=== PATIENT | male | born 1970 | race Caucasian/White ===

== ENCOUNTER → 2020-12-28 | Outpatient (CLI) | payer MEDICAID ==
[~2020-12-28] MED LIST: ADVIL200 MG PO; ASPIRIN E.C. 8181 MG PO; DIFLUCAN200 MG PO; LIPITOR 80MG80 MG PO; LOPRESSOR 225 MG/TAB PO; MITIGARE0.6 MG; NORCO 325 MG-51 TAB PO; PEPCID 20MG TAB20 MG PO; PLAVIX 75MG TAB75 MG PO; PREDNISONE20 MG PO; PRINIVIL10 MG PO; PRINIVIL40 MG PO; ZESTRIL 20MG TA20 MG PO; ZOFRAN ODT4 MG PO; ZOLOFT 100MG100 MG PO
[2021-01-09 13:56] LABS: BLASTOMYCES AB CF XXX
[2021-01-09 13:57] LABS: COCCIDIOIDES AB CF XXX; HISTOPLASMA MYCELIAL AB CF XXX
[2021-01-24 07:59] LABS: .HISTOPLASMA ANTIGEN SERUM None Detected (())
== END ==
LOC: COL.LAB 10:17
PROVIDERS: Internal Medicine Infectious Disease
DX: B45.0 Pulmonary cryptococcosis (principal)

== ENCOUNTER 2021-01-08 04:56 | Inpatient (IN) | payer MEDICAID ==
[2021-01-08] VITALS (16 sets, daily range): BP systolic 125–170; BP diastolic 53–89; PULSE 73–119; TEMP 98.1–98.7
[~2021-01-08] VITALS: Ht 180.3 cm; Wt 120.0 kg
[2021-01-08 05:13] LABS: BASO % 0.3 % (0.0-2.0); EOS # 0.3 (0.0-0.7); EOS % 2.7 % (0-4.0); GRAN # 5.9 (1.4-6.5); GRAN % 63.7 % (42.2-75.2); HEMATOCRIT 43.6 % (42.0-52.0); LYMPH # 2.3 (1.2-3.4); LYMPH % 25.1 % (20.0-51.0); MEAN CELL VOLUME 95 fl (80.0-100.0); MEAN CORPUSCULAR HEMOGLOBIN 30 pg (27.0-31.0); MEAN CORPUSCULAR HGB CONC 32 g/dl (33.0-37.0); MEAN PLATELET VOLUME 11.2 fl (7.4-10.4); MONO # 0.7 (0.1-0.6); MONO % 7.8 % (1.7-9.3); PLATELET COUNT 237 K/mm3 (130-400); RED BLOOD COUNT 4.61 M/mm3 (4.20-5.60); REDCELL DISTRIBUTION WIDTH-CV 14.2 % (11.5-14.5)
[2021-01-08 05:20] LABS: ALBUMIN 3.8 gm/dL (3.5-5.0); BILIRUBIN,TOTAL 0.1 mg/dL (0.0-1.0); CALCIUM 8.5 mg/dL (8.4-10.2); CREATININE, serum 0.91 (0.66-1.25); POTASSIUM 3.9 mmol/L (3.4-5.0); TOTAL PROTEIN 7.4 gm/dL (6.4-8.2)
[2021-01-08 05:32] LABS: TROPONIN-I 0.083 ng/mL (0.000-0.035)
[2021-01-08] MEDS ORDERED: PRINIVIL40 MG PO (06:18)
[2021-01-08] MEDS ORDERED: DIFLUCAN200 MG PO (06:18)
[2021-01-08] MEDS ORDERED: ZESTRIL 20MG TA20 MG PO (06:18)
[2021-01-08] MEDS ORDERED: ADVIL200 MG PO (08:36)
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
--- NOTE | 2021-01-08 10:50 | NUR ---
PADMA met with the patient and his , Federica (ph#[phone]), to discuss discharge plan. The patient lives in [place] with his . He reports independence with ADLs and does not have any DME. The patient states that he does not have a PCP at this time. He receives his medications from [facility] in . He reports occasional difficulties affording his meds. He states that he utilizes [facility]. The patient confirms that he has Medicaid. He states that he got a letter in the mail though, stating that he will be losing coverage at the end of this month. PADMA consulted Financial Counselor, Eloina, to look into his coverage and to apply for Medicaid again, if he is losing coverage. PADMA discussed getting set up with a PCP and informed him of [facility] in . The patient states that his goes there and that he would be interested in getting set up at [facility] for primary care. The patient does not have a DPOA-HC, but he was interested in obtaining a form. PADMA provided. The patient plans to return home with his upon discharge. PADMA to secure the [facility] an [facility] in . *Discharge plan: home with *
[2021-01-08 11:55] LABS: MAGNESIUM 1.8 mg/dL (1.6-2.3)
--- NOTE | 2021-01-08 13:10 | NUR ---
CARDIO CONSULT NOTIFIED. PER ADMITTING, PT NOT TO EAT UNTIL SEEN BY CARDIO. PT MADE AWARE THAT HE SHOULD NOT EAT OR DRINK.
--- NOTE | 2021-01-08 13:30 | NUR ---
Initial visit; Patient thanked Screening Nurse for offering spiritual care though declined.
--- NOTE | 2021-01-08 14:12 | NUR ---
PROVIDER AT THE BEDSIDE, PT IS GOING FOR A PROCEDURE THIS AFTERNOON. CONSENT OBTAINED. HAM ROLLING MACHINE OPERATOR MADE AWARE THE PT IS ON A HEPARIN DRIP. NURSE AT THE BEDSIDE TO TRANSFER PT TO HAM ROLLING MACHINE OPERATOR. NO S/S OF DISTRESS NOTICED AT THIS TIME.
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
--- NOTE | 2021-01-08 23:00 | NUR ---
Patient complains of pain in his lower extremities, similar to what he chronically experiences at home. Patient states the morphine from earlier helped with this; he requests an additional dose and order is obtained for one time dose of 2mg.
[2021-01-09 00:10] VITALS: BP 145/78; PULSE 83; TEMP 98
--- NOTE | 2021-01-09 01:00 | NUR ---
All air has been removed from TR band on right radial site and TR band is taken off. No signs of bleeding. Bandaid placed over site. Will continue to monitor.
[2021-01-09 03:55] VITALS: BP 117/51; PULSE 91; TEMP 98
[2021-01-09 07:17] VITALS: BP 123/65; PULSE 91; TEMP 97.9
[2021-01-09] MEDS ORDERED: PLAVIX 75MG TAB75 MG PO (09:12)
[2021-01-09] MEDS ORDERED: LOPRESSOR 225 MG/TAB PO (09:13)
[2021-01-09] MEDS ORDERED: ASPIRIN E.C. 8181 MG PO (09:13)
[2021-01-09] MEDS ORDERED: LIPITOR 80MG80 MG PO (09:13)
[2021-01-09 09:30] LABS: CHOLESTEROL 254 mg/dL (120-200)
[2021-01-09 09:54] LABS: TRIGLYCERIDE 1374 mg/dL
--- NOTE | 2021-01-09 10:39 | NUR ---
DISCHARGE INSTRUCTIONS REVIEWED WITH PATIENT QUESTIONS ANSWERED. PT LEFT IMMEDIATELY WITH OUT FOLLOWING DIRECTIONS OF GLO PRATT TO PLEASE WAIT THE HOSPITALIST WOULD LIKE TO FOLLOW UP ON HYPERLIPIDEMA WITH . PT LEFT INDEPENDENTLY AMBULATORY.
--- NOTE | 2021-01-09 11:14 | NUR ---
contact worker called [facility] in [place] to establish patient with them. Patient has a follow up appointment on FridayJanuary [address] Madison[address]contact worker faxed patients information to [facility] in [place]. contact worker tried reaching out to the patient to let him know that i have established him at [facility], what date and time his appointment is and to inform him that [facility] will be reaching out to him for new patient paperwork. contact worker was unsuccessful in getting ahold of the patient.
--- NOTE | 2021-01-09 13:01 | NUR ---
car worker got a hold of Federica. Informed Federica of patient's appointment date/time with [facility] for his hospital follow up. Informed Federica that [facility] will be sending them new patient paperwork for them to fill out.
[2021-02-20] MEDS ORDERED: PRINIVIL10 MG PO (09:05)
[2021-02-20] MEDS ORDERED: ZOLOFT 100MG100 MG PO (09:07)
== END 2021-01-09 10:00 | disposition home or self-care (01) | DRG 246 ==
LOC: COL.ER 04:56 → MEDICAL 06:24
PROVIDERS: Personal Emergency Response Attendant; Physician Assistant; ADMIT Student in an Organized Health Care Education/Training Program
PROC: 4A023N7 Measurement of Cardiac Sampling and Pressure, Left Heart, Percutaneous Approach (ICD-10-PCS; principal; 2021-01-08)
PROC: 027135Z Dilation of Coronary Artery, Two Arteries with Two Drug-eluting Intraluminal Devices, Percutaneous Approach (ICD-10-PCS; 2021-01-08)
PROC: B2111ZZ Fluoroscopy of Multiple Coronary Arteries using Low Osmolar Contrast (ICD-10-PCS; 2021-01-08)
DX: I11.0 Hypertensive heart disease with heart failure (principal); I21.4 Non-ST elevation (NSTEMI) myocardial infarction; I50.23 Acute on chronic systolic (congestive) heart failure; E66.01 Morbid (severe) obesity due to excess calories; Z87.891 Personal history of nicotine dependence; M48.00 Spinal stenosis, site unspecified; E66.9 Obesity, unspecified; I25.10 Atherosclerotic heart disease of native coronary artery without angina pectoris; I25.2 Old myocardial infarction
CPT/HCPCS: 99223-AI; 99239; C1725; C1769; C1874; C1887; C9600; J1644; J2250; J2270; J2405; J2930; J3010; Q9967

== ENCOUNTER 2021-01-12 17:15 | Emergency (ER) | payer MEDICAID ==
[~2021-01-12] VITALS: Ht 180.3 cm; Wt 118.2 kg
[~2021-01-12 17:15] MED LIST changes: -MITIGARE0.6 MG; -NORCO 325 MG-51 TAB PO; -PEPCID 20MG TAB20 MG PO; -PREDNISONE20 MG PO; -PRINIVIL10 MG PO; -ZOFRAN ODT4 MG PO; -ZOLOFT 100MG100 MG PO
[2021-01-12 17:23] VITALS: TEMP 98.3
[2021-01-12 17:58] LABS: BASO % 0.1 % (0.0-2.0); GRAN # 15.2 (1.4-6.5); GRAN % 82.1 % (42.2-75.2); HEMATOCRIT 45.5 % (42.0-52.0); LYMPH # 1.7 (1.2-3.4); LYMPH % 9.3 % (20.0-51.0); MEAN CELL VOLUME 90 fl (80.0-100.0); MEAN CORPUSCULAR HEMOGLOBIN 30 pg (27.0-31.0); MEAN CORPUSCULAR HGB CONC 33 g/dl (33.0-37.0); MEAN PLATELET VOLUME 11.4 fl (7.4-10.4); MONO # 1.4 (0.1-0.6); MONO % 7.5 % (1.7-9.3); PLATELET COUNT 325 K/mm3 (130-400); RED BLOOD COUNT 5.07 M/mm3 (4.20-5.60); REDCELL DISTRIBUTION WIDTH-CV 14.1 % (11.5-14.5)
[2021-01-12 18:07] LABS: ALBUMIN 3.9 gm/dL (3.5-5.0); BILIRUBIN,TOTAL 0.2 mg/dL (0.0-1.0); CALCIUM 9.2 mg/dL (8.4-10.2); CREATININE, serum 0.91 (0.66-1.25); POTASSIUM 4.1 mmol/L (3.4-5.0); TOTAL PROTEIN 7.5 gm/dL (6.4-8.2)
[2021-01-12 18:10] LABS: PROTHROMBIN TIME 11.1 SECONDS (9.7-12.8)
[2021-01-12 18:13] LABS: PARTIAL THROMBOPLASTIN TIME 24.9 SECONDS (26.0-37.0)
[2021-01-12 18:18] LABS: TROPONIN-I 0.016 ng/mL (0.000-0.035)
[2021-01-12] MEDS ORDERED: NORCO 325 MG-51 TAB PO (19:54)
[2021-01-12 20:10] VITALS: BP 142/95; PULSE 89
[2021-02-20] MEDS ORDERED: PRINIVIL10 MG PO (09:05)
[2021-02-20] MEDS ORDERED: ZOLOFT 100MG100 MG PO (09:07)
== END 2021-01-12 20:10 | disposition home or self-care (01) ==
LOC: COL.ER 17:15
PROVIDERS: Family Medicine
DX: M54.12 Radiculopathy, cervical region (principal); I25.10 Atherosclerotic heart disease of native coronary artery without angina pectoris; F17.200 Nicotine dependence, unspecified, uncomplicated; Z95.9 Presence of cardiac and vascular implant and graft, unspecified; Z79.02 Long term (current) use of antithrombotics/antiplatelets; Z79.82 Long term (current) use of aspirin
CPT/HCPCS: J2270; J2405; J7120

== ENCOUNTER → 2021-02-15 | Outpatient (CLI) | payer MEDICAID ==
[~2021-02-15] MED LIST changes: +MITIGARE0.6 MG; +NORCO 325 MG-51 TAB PO; +PEPCID 20MG TAB20 MG PO; +PREDNISONE20 MG PO; +PRINIVIL10 MG PO; +TOPROL XL 25MG25 MG PO; +ZOFRAN ODT4 MG PO; +ZOLOFT 100MG100 MG PO
[2021-02-15 12:28] LABS: BASO % 0.2 % (0.0-2.0); EOS % 0.2 % (0-4.0); GRAN # 8.6 (1.4-6.5); GRAN % 80.6 % (42.2-75.2); HEMATOCRIT 49.5 % (42.0-52.0); HEMOGLOBIN 16.2 g/dl (13.5-18.0); LYMPH # 1.6 (1.2-3.4); LYMPH % 14.6 % (20.0-51.0); MEAN CELL VOLUME 90 fl (80.0-100.0); MEAN CORPUSCULAR HEMOGLOBIN 30 pg (27.0-31.0); MEAN CORPUSCULAR HGB CONC 33 g/dl (33.0-37.0); MEAN PLATELET VOLUME 11.2 fl (7.4-10.4); MONO # 0.3 (0.1-0.6); MONO % 3.2 % (1.7-9.3); PLATELET COUNT 295 K/mm3 (130-400); RED BLOOD COUNT 5.48 M/mm3 (4.20-5.60); REDCELL DISTRIBUTION WIDTH-CV 13.7 % (11.5-14.5)
[2021-02-15 12:38] LABS: ALBUMIN 4.8 gm/dL (3.5-5.0); BILIRUBIN,TOTAL 0.5 mg/dL (0.0-1.0); CALCIUM 9.9 mg/dL (8.4-10.2); CREATININE, serum 1.02 (0.66-1.25); POTASSIUM 4.7 mmol/L (3.4-5.0); TOTAL PROTEIN 8.3 gm/dL (6.4-8.2)
[2021-02-15 13:03] LABS: ERYTHROCYTE SEDIMENTATION RATE 6 mm/hr (0-15)
[2021-02-23 11:42] LABS: .HISTOPLASMA ANTIGEN SERUM None Detected (())
== END ==
LOC: COL.LAB 11:23
PROVIDERS: Internal Medicine Infectious Disease
DX: R93.89 Abnormal findings on diagnostic imaging of other specified body structures (principal)

== ENCOUNTER 2021-02-24 05:01 | Observation (INO) | payer MEDICAID ==
[~2021-02-24] VITALS: Ht 180.3 cm; Wt 113.6 kg
[~2021-02-24 05:01] MED LIST changes: -MITIGARE0.6 MG; -PEPCID 20MG TAB20 MG PO; -PREDNISONE20 MG PO; -TOPROL XL 25MG25 MG PO; -ZOFRAN ODT4 MG PO
[2021-02-24 05:22] LABS: BASO % 0.3 % (0.0-2.0); EOS # 0.2 (0.0-0.7); EOS % 1.8 % (0-4.0); GRAN # 7.4 (1.4-6.5); GRAN % 67.4 % (42.2-75.2); HEMATOCRIT 45.9 % (42.0-52.0); LYMPH # 2.4 (1.2-3.4); MEAN CELL VOLUME 92 fl (80.0-100.0); MEAN CORPUSCULAR HEMOGLOBIN 30 pg (27.0-31.0); MEAN CORPUSCULAR HGB CONC 33 g/dl (33.0-37.0); MEAN PLATELET VOLUME 11.5 fl (7.4-10.4); MONO # 0.9 (0.1-0.6); MONO % 7.7 % (1.7-9.3); PLATELET COUNT 239 K/mm3 (130-400); REDCELL DISTRIBUTION WIDTH-CV 14.2 % (11.5-14.5)
[2021-02-24 05:41] LABS: ALBUMIN 3.6 gm/dL (3.5-5.0); BILIRUBIN,TOTAL 0.3 mg/dL (0.2-1.2); CALCIUM 9.3 mg/dL (8.4-10.2); CREATININE, serum 1.73 mg/dL (0.72-1.25); POTASSIUM 4.4 mmol/L (3.5-4.5); TOTAL PROTEIN 7.4 gm/dL (6.2-8.1)
[2021-02-24 05:52] LABS: PROTHROMBIN TIME 10.7 SECONDS (9.7-12.8)
[2021-02-24 05:55] LABS: PARTIAL THROMBOPLASTIN TIME 28.9 SECONDS (26.0-37.0)
--- NOTE | 2021-02-24 10:00 | NUR ---
Admission assessment completed, alert/oriented, vital signs stable, denies any chest discomfort, denies any resp.difficulty, lungs CTA, heart RRR, patient main concern is right arm pain that started after his heart cath last week where they accessed his right radial artery/ states pain has increased ever sence then and is now severe, I have notified of his pain, patient has elevated D-dymer/ orders in for venous doppler of BLE and BUE/ and heparin gtt, will do chest CT tommorow if his creatnine comes back down to WNL, meds/pharmacy/allergies reviewed with the patient
[2021-02-24 10:10] VITALS: BP 130/71; PULSE 63; TEMP 98.1
--- NOTE | 2021-02-24 13:03 | NUR ---
Plan is to return home with in [facility]. SW met with patient and in room. is Federica way . Patient reports that his PCP is Dr. Amaro at [facility] in . Patient reports that he has other specialist Dr. Wray, Dr. Ruiz, Dr. Turk and uses [facility] in for medicaitons. Patient indicated that his arm is hurting from his wrist to elbow. Patient reports that he is having pain and rates it a 20 out of 10. Patient has a DTR Kerrie . Patient shares that he already been given Fent, tramadol, morphorine, morphine, and stated that he does not have any help with pain. Patient shares that his arm is throbbing. Patient shares that if his pain is managed he is okay. Has good transportation home. Staffed with nurse about medications, Nurse will follow up.
[2021-02-24 17:01] VITALS: BP 175/92; PULSE 75; TEMP 97.9
--- NOTE | 2021-02-24 19:00 | NUR ---
HepXa >1, stopping gtt for 2 hours, will recheck HepXa and PTT at 2100
[2021-02-24 19:32] VITALS: BP 131/63; PULSE 83; TEMP 97.8
--- NOTE | 2021-02-24 20:40 | NUR ---
Patient is sitting in bed, alert and oriented x 4, reports pain of 12 in a 1-10 scale. [place] provided. His right hand hurts, complains with the simple touch. Cant fold fingers, pain with minimal movement. The skin is not warm but redness present. He indicates that pain increases when he puts his arm up and sometimes extends to the upper arm. Tele in place, VSS, Heparin drip is stooped since HEP A XA WAS 1.27. Waiting for the labs and results at 2100, Refuses using a gown, states it is hot. Presents some sweating, he states it is normal for him. Not further needs at this time, call light within reach. Continue monitoring.
[2021-02-24 21:32] LABS: PARTIAL THROMBOPLASTIN TIME 35.4 SECONDS (26.0-37.0)
--- NOTE | 2021-02-24 22:30 | NUR ---
Hep A-XA was 0.31, following instructions heparin drip was restarted decreasing 300 units/hr from 2050 to 1750 units/ hr. HEP A-XA scheduled in 6 hrs after restarted.
[2021-02-24 23:25] VITALS: BP 139/74; PULSE 79; TEMP 98.4
[2021-02-25 03:39] VITALS: BP 122/73; PULSE 69; TEMP 97.8
[2021-02-25 06:36] LABS: BASO % 0.2 % (0.0-2.0); EOS # 0.1 (0.0-0.7); EOS % 1.3 % (0-4.0); GRAN # 6.5 (1.4-6.5); GRAN % 68.4 % (42.2-75.2); HEMATOCRIT 40.9 % (42.0-52.0); HEMOGLOBIN 13.6 g/dl (13.5-18.0); LYMPH % 20.6 % (20.0-51.0); MEAN CELL VOLUME 90 fl (80.0-100.0); MEAN CORPUSCULAR HEMOGLOBIN 30 pg (27.0-31.0); MEAN CORPUSCULAR HGB CONC 33 g/dl (33.0-37.0); MEAN PLATELET VOLUME 11.6 fl (7.4-10.4); MONO # 0.9 (0.1-0.6); MONO % 8.9 % (1.7-9.3); PLATELET COUNT 181 K/mm3 (130-400); RED BLOOD COUNT 4.56 M/mm3 (4.20-5.60)
[2021-02-25 06:39] LABS: CALCIUM 9.1 mg/dL (8.4-10.2); CREATININE, serum 0.88 mg/dL (0.72-1.25); POTASSIUM 4.5 mmol/L (3.5-4.5)
--- NOTE | 2021-02-25 06:39 | NUR ---
Patient has had an uncomfortable night. His arm continues hurting. He has been asking for pain medication PRN.
--- NOTE | 2021-02-25 06:43 | NUR ---
Hep A-XA results are 0.63. No change according to scale. Within goal.
[2021-02-25 09:14] VITALS: BP 193/80; PULSE 83; TEMP 98.6
--- NOTE | 2021-02-25 09:38 | NUR ---
Assessment completed, alert/oriented, vital signs stable/ HTN and I have given his scheduled Metoprolol, heart RRR/ distal pulses palpabe, lungs CTA/ no resp.dfificulty, creat improved and we are proceeding with CT chest to r/o PE this morning, he is still reporting severe right arm pain, some swelling noted to RUE/ radial pulse strong, no signs of impaired circulation, Hep gtt continued untill PE r/o, he denies other needs this mroning, will continue to monitor
--- NOTE | 2021-02-25 12:27 | NUR ---
Discharge orders dsicussed with the patient, instructed to follow up with PCP in 1 week, instructed to follow up with cardiology as previously scheduled for him, IV and tele removed, instructed to resume previous home meds, no new meds or med chagnes made, leaving with , ambulatory and CRYSTALLOGRAPHER escorted them out the door
== END 2021-02-25 12:28 | disposition home or self-care (01) ==
LOC: COL.ER 05:01 → MEDICAL 07:29
PROVIDERS: Emergency Medicine; ADMIT Family Medicine
DX: R55 Syncope and collapse (principal); M79.631 Pain in right forearm; N17.9 Acute kidney failure, unspecified; I11.0 Hypertensive heart disease with heart failure; I50.20 Unspecified systolic (congestive) heart failure; J16.8 Pneumonia due to other specified infectious organisms; E78.5 Hyperlipidemia, unspecified; B45.0 Pulmonary cryptococcosis; R91.1 Solitary pulmonary nodule; E04.1 Nontoxic single thyroid nodule; I25.10 Atherosclerotic heart disease of native coronary artery without angina pectoris; I25.2 Old myocardial infarction; E66.9 Obesity, unspecified; F41.9 Anxiety disorder, unspecified; M25.572 Pain in left ankle and joints of left foot; M25.571 Pain in right ankle and joints of right foot; F17.210 Nicotine dependence, cigarettes, uncomplicated; T43.226A Underdosing of selective serotonin reuptake inhibitors, initial encounter; Z91.128 Patient's intentional underdosing of medication regimen for other reason; Z95.5 Presence of coronary angioplasty implant and graft; Z79.899 Other long term (current) drug therapy; Z79.02 Long term (current) use of antithrombotics/antiplatelets; Z79.82 Long term (current) use of aspirin
CPT/HCPCS: 99222-AI; 99239; J1644; J2270; J2405; J3010; J7030; Q9967

== ENCOUNTER 2021-03-25 15:07 | Emergency (ER) | payer MEDICAID ==
[~2021-03-25] VITALS: Ht 154.9 cm; Wt 118.2 kg
[2021-03-25 15:54] VITALS: TEMP 98.3
[2021-03-25 16:22] LABS: BASO % 0.3 % (0.0-2.0); EOS # 0.1 K/mm3 (0.0-0.7); EOS % 1.8 % (0-4.0); GRAN # 4.7 K/mm3 (1.4-6.5); GRAN % 62.4 % (42.2-75.2); HEMATOCRIT 44.8 % (42.0-52.0); HEMOGLOBIN 14.9 g/dl (13.5-18.0); LYMPH % 26.4 % (20.0-51.0); MEAN CELL VOLUME 89 fl (80.0-100.0); MEAN CORPUSCULAR HEMOGLOBIN 30 pg (27.0-31.0); MEAN CORPUSCULAR HGB CONC 33 g/dl (33.0-37.0); MEAN PLATELET VOLUME 11.4 fl (7.4-10.4); MONO # 0.7 K/mm3 (0.1-0.6); MONO % 8.7 % (1.7-9.3); PLATELET COUNT 219 K/mm3 (130-400); RED BLOOD COUNT 5.01 M/mm3 (4.20-5.60); REDCELL DISTRIBUTION WIDTH-CV 13.7 % (11.5-14.5)
[2021-03-25] MEDS ORDERED: MITIGARE0.6 MG (16:38)
[2021-03-25 17:03] LABS: ALBUMIN 3.9 gm/dL (3.5-5.0); BILIRUBIN,TOTAL 0.3 mg/dL (0.2-1.2); CALCIUM 9.2 mg/dL (8.4-10.2); CREATININE, serum 0.86 mg/dL (0.72-1.25); TOTAL PROTEIN 7.5 gm/dL (6.2-8.1)
[2021-03-25 17:09] LABS: TROPONIN-I 0.023 ng/mL (0.00-0.033)
[2021-03-25 17:48] LABS: COLLECTION METHOD CLEAN CATCH
[2021-03-25 17:53] LABS: PH 5 (5-8); SQUAMOUS EPITHELIAL None Seen /hpf; URINE APPEARANCE Clear; URINE BACTERIA None Seen /hpf; URINE BILIRUBIN Negative (NEGATIVE); URINE BLOOD Negative (NEGATIVE); URINE COLOR Yellow; URINE GLUCOSE Negative (NEGATIVE); URINE KETONE Negative (NEGATIVE); URINE LEUKOCYTE ESTERASE Negative (NEGATIVE); URINE NITRATE Negative (NEGATIVE); URINE PROTEIN(semi-quant) 2+ (NEGATIVE); URINE RBC 0-2 /hpf; URINE UROBILINOGEN Negative (NEGATIVE)
[2021-03-25 19:46] VITALS: BP 129/96; PULSE 100
== END 2021-03-25 19:52 | disposition home or self-care (01) ==
LOC: COL.ER 15:07
PROVIDERS: Physician Assistant
DX: R10.12 Left upper quadrant pain (principal); R05.9 Cough, unspecified; R74.8 Abnormal levels of other serum enzymes; I25.10 Atherosclerotic heart disease of native coronary artery without angina pectoris; I50.9 Heart failure, unspecified; I11.0 Hypertensive heart disease with heart failure; E78.5 Hyperlipidemia, unspecified; E66.9 Obesity, unspecified; F41.9 Anxiety disorder, unspecified; Z72.0 Tobacco use; Z68.42 Body mass index [BMI] 45.0-49.9, adult; Z20.822 Contact with and (suspected) exposure to COVID-19; Z79.82 Long term (current) use of aspirin; Z79.899 Other long term (current) drug therapy
CPT/HCPCS: J2270; J2405; Q9967

== ENCOUNTER 2021-03-28 18:16 | Emergency (ER) | payer MEDICAID ==
[~2021-03-28] VITALS: Ht 180.3 cm; Wt 118.2 kg
[~2021-03-28 18:16] MED LIST changes: +MITIGARE0.6 MG
[2021-03-28 18:24] VITALS: TEMP 100.2
[2021-03-28 19:17] LABS: BASO % 0.3 % (0.0-2.0); EOS # 0.3 K/mm3 (0.0-0.7); EOS % 3.9 % (0-4.0); GRAN # 3.5 K/mm3 (1.4-6.5); GRAN % 52.3 % (42.2-75.2); HEMATOCRIT 43.6 % (42.0-52.0); HEMOGLOBIN 14.5 g/dl (13.5-18.0); LYMPH # 2.2 K/mm3 (1.2-3.4); LYMPH % 32.6 % (20.0-51.0); MEAN CELL VOLUME 91 fl (80.0-100.0); MEAN CORPUSCULAR HEMOGLOBIN 30 pg (27.0-31.0); MEAN CORPUSCULAR HGB CONC 33 g/dl (33.0-37.0); MEAN PLATELET VOLUME 11.7 fl (7.4-10.4); MONO # 0.7 K/mm3 (0.1-0.6); MONO % 10.3 % (1.7-9.3); PLATELET COUNT 175 K/mm3 (130-400); RED BLOOD COUNT 4.77 M/mm3 (4.20-5.60); REDCELL DISTRIBUTION WIDTH-CV 13.7 % (11.5-14.5)
[2021-03-28 19:53] LABS: ALBUMIN 3.7 gm/dL (3.5-5.0); BILIRUBIN,TOTAL 0.2 mg/dL (0.2-1.2); C-REACTIVE PROTEIN 0.4 mg/dL (0.00-0.50); CALCIUM 9.3 mg/dL (8.4-10.2); CREATININE, serum 0.94 mg/dL (0.72-1.25); POTASSIUM 4.3 mmol/L (3.5-4.5)
[2021-03-28 19:59] LABS: TROPONIN-I 0.03 ng/mL (0.00-0.033)
[2021-03-28 21:56] VITALS: BP 165/86; PULSE 83
== END 2021-03-28 21:56 | disposition home or self-care (01) ==
LOC: COL.ER 18:16
PROVIDERS: Nurse Practitioner
DX: R10.11 Right upper quadrant pain (principal); R74.8 Abnormal levels of other serum enzymes; I25.10 Atherosclerotic heart disease of native coronary artery without angina pectoris; I10 Essential (primary) hypertension; F17.210 Nicotine dependence, cigarettes, uncomplicated; Z79.82 Long term (current) use of aspirin; Z79.899 Other long term (current) drug therapy
CPT/HCPCS: J2270; J2405; J7030

== ENCOUNTER 2021-04-10 15:03 | Emergency (ER) | payer MEDICAID ==
[~2021-04-10] VITALS: Ht 180.3 cm; Wt 118.2 kg
[2021-04-10 15:23] VITALS: TEMP 98.7
[2021-04-10 16:14] LABS: BASO % 0.3 % (0.0-2.0); EOS # 0.3 K/mm3 (0.0-0.7); EOS % 4.4 % (0-4.0); GRAN # 2.9 K/mm3 (1.4-6.5); GRAN % 46.8 % (42.2-75.2); HEMATOCRIT 45.1 % (42.0-52.0); LYMPH # 2.4 K/mm3 (1.2-3.4); LYMPH % 38.5 % (20.0-51.0); MEAN CELL VOLUME 90 fl (80.0-100.0); MEAN CORPUSCULAR HEMOGLOBIN 30 pg (27.0-31.0); MEAN CORPUSCULAR HGB CONC 33 g/dl (33.0-37.0); MEAN PLATELET VOLUME 11.3 fl (7.4-10.4); MONO # 0.6 K/mm3 (0.1-0.6); MONO % 9.7 % (1.7-9.3); PLATELET COUNT 221 K/mm3 (130-400); RED BLOOD COUNT 5.04 M/mm3 (4.20-5.60); REDCELL DISTRIBUTION WIDTH-CV 13.8 % (11.5-14.5)
[2021-04-10 16:34] LABS: ALANINE AMINOTRANSFERASE 28 U/L (0-55); ALBUMIN 3.9 gm/dL (3.5-5.0); ALKALINE PHOSPHATASE 115 U/L (40-150); ANION GAP 13 mmol/L (7-16); AST,SGOT 25 U/L (5-34); BILIRUBIN,TOTAL 0.2 mg/dL (0.2-1.2); BLOOD UREA NITROGEN 10 mg/dL (9-21); CALCIUM 9.3 mg/dL (8.4-10.2); CARBON DIOXIDE 21 mmol/L (22-29); CHLORIDE 107 mmol/L (98-107); CREATININE, serum 0.83 mg/dL (0.72-1.25); GLUCOSE 128 mg/dL (70-99); LIPASE 116 U/L (8-78); POTASSIUM 3.6 mmol/L (3.5-4.5); SODIUM 141 mmol/L (136-145); TOTAL PROTEIN 7.7 gm/dL (6.2-8.1)
[2021-04-10 16:56] LABS: TSH w REFLEX 0.062 uIU/mL (0.350-4.940)
[2021-04-10 16:57] LABS: TROPONIN-I < 0.010 ng/mL (0.00-0.033)
[2021-04-10] MEDS ORDERED: ZOFRAN ODT4 MG PO (17:49)
[2021-04-10] MEDS ORDERED: PEPCID 20MG TAB20 MG PO (17:49)
[2021-04-10 17:58] VITALS: BP 156/90; PULSE 86
== END 2021-04-10 18:10 | disposition home or self-care (01) ==
LOC: COL.ER 15:03
PROVIDERS: Emergency Medicine
DX: R19.7 Diarrhea, unspecified (principal); I10 Essential (primary) hypertension; I25.10 Atherosclerotic heart disease of native coronary artery without angina pectoris; I25.2 Old myocardial infarction; F17.210 Nicotine dependence, cigarettes, uncomplicated; Z20.822 Contact with and (suspected) exposure to COVID-19; Z79.82 Long term (current) use of aspirin; Z79.899 Other long term (current) drug therapy
CPT/HCPCS: J2405; J3010; Q9967

== ENCOUNTER 2021-04-18 14:52 | Emergency (ER) | payer MEDICAID ==
[~2021-04-18] VITALS: Ht 180.3 cm; Wt 118.2 kg
[~2021-04-18 14:52] MED LIST changes: +PEPCID 20MG TAB20 MG PO; +ZOFRAN ODT4 MG PO
[2021-04-18 17:32] LABS: BASO % 0.4 % (0.0-2.0); EOS # 0.3 K/mm3 (0.0-0.7); EOS % 3.6 % (0-4.0); GRAN % 53.8 % (42.2-75.2); HEMATOCRIT 47.2 % (42.0-52.0); HEMOGLOBIN 15.7 g/dl (13.5-18.0); LYMPH # 2.4 K/mm3 (1.2-3.4); LYMPH % 32.7 % (20.0-51.0); MEAN CELL VOLUME 89 fl (80.0-100.0); MEAN CORPUSCULAR HEMOGLOBIN 30 pg (27.0-31.0); MEAN CORPUSCULAR HGB CONC 33 g/dl (33.0-37.0); MEAN PLATELET VOLUME 11.6 fl (7.4-10.4); MONO # 0.7 K/mm3 (0.1-0.6); MONO % 9.2 % (1.7-9.3); PLATELET COUNT 193 K/mm3 (130-400); RED BLOOD COUNT 5.32 M/mm3 (4.20-5.60); REDCELL DISTRIBUTION WIDTH-CV 13.4 % (11.5-14.5)
[2021-04-18 18:08] LABS: ALBUMIN 3.9 gm/dL (3.5-5.0); BILIRUBIN,TOTAL 0.2 mg/dL (0.2-1.2); C-REACTIVE PROTEIN 0.23 mg/dL (0.00-0.50); CALCIUM 9.1 mg/dL (8.4-10.2); CREATININE, serum 0.93 mg/dL (0.72-1.25); POTASSIUM 4.2 mmol/L (3.5-4.5); TOTAL PROTEIN 7.4 gm/dL (6.2-8.1)
[2021-04-18 18:14] LABS: TROPONIN-I 0.015 ng/mL (0.00-0.033)
[2021-04-18] MEDS ORDERED: NORCO 325 MG-51 TAB PO ×3 (18:45→19:55)
[2021-04-18] MEDS ORDERED: PREDNISONE20 MG PO ×3 (18:45→19:55)
[2021-04-18 19:00] VITALS: BP 153/115; PULSE 85; TEMP 98.4
== END 2021-04-18 19:05 | disposition home or self-care (01) ==
LOC: COL.ER 14:52
PROVIDERS: Emergency Medicine
DX: M54.12 Radiculopathy, cervical region (principal); I25.2 Old myocardial infarction; I10 Essential (primary) hypertension; E78.00 Pure hypercholesterolemia, unspecified; F17.210 Nicotine dependence, cigarettes, uncomplicated; Z98.890 Other specified postprocedural states; Z86.79 Personal history of other diseases of the circulatory system; Z88.6 Allergy status to analgesic agent; Z79.82 Long term (current) use of aspirin; Z79.899 Other long term (current) drug therapy
CPT/HCPCS: J1885; J2360

== ENCOUNTER → 2021-05-04 | Outpatient (CLI) | payer MEDICAID ==
[~2021-05-04] MED LIST changes: +PREDNISONE20 MG PO; +TOPROL XL 25MG25 MG PO
[2021-05-04 17:01] LABS: BASO % 0.3 % (0.0-2.0); EOS # 0.2 K/mm3 (0.0-0.7); EOS % 2.9 % (0-4.0); GRAN # 3.4 K/mm3 (1.4-6.5); GRAN % 50.7 % (42.2-75.2); HEMATOCRIT 48.6 % (42.0-52.0); HEMOGLOBIN 15.8 g/dl (13.5-18.0); LYMPH # 2.2 K/mm3 (1.2-3.4); LYMPH % 33.6 % (20.0-51.0); MEAN CELL VOLUME 91 fl (80.0-100.0); MEAN CORPUSCULAR HEMOGLOBIN 30 pg (27.0-31.0); MEAN CORPUSCULAR HGB CONC 33 g/dl (33.0-37.0); MEAN PLATELET VOLUME 11.1 fl (7.4-10.4); MONO # 0.8 K/mm3 (0.1-0.6); MONO % 11.9 % (1.7-9.3); PLATELET COUNT 209 K/mm3 (130-400); RED BLOOD COUNT 5.34 M/mm3 (4.20-5.60); REDCELL DISTRIBUTION WIDTH-CV 13.8 % (11.5-14.5)
[2021-05-04 17:21] LABS: ALBUMIN 3.7 gm/dL (3.5-5.0); BILIRUBIN,TOTAL 0.3 mg/dL (0.2-1.2); CALCIUM 9.4 mg/dL (8.4-10.2); CREATININE, serum 0.92 mg/dL (0.72-1.25); POTASSIUM 4.2 mmol/L (3.5-4.5); TOTAL PROTEIN 7.8 gm/dL (6.2-8.1)
== END ==
LOC: COL.LAB 16:29
PROVIDERS: Nurse Practitioner
DX: B45.0 Pulmonary cryptococcosis (principal)

== ENCOUNTER 2021-05-06 09:52 | Observation (INO) | payer MEDICAID ==
[~2021-05-06] VITALS: Ht 180.3 cm; Wt 115.3 kg
[~2021-05-06 09:52] MED LIST changes: -TOPROL XL 25MG25 MG PO
[2021-05-06 10:50] LABS: BASO % 0.3 % (0.0-2.0); EOS # 0.1 K/mm3 (0.0-0.7); EOS % 2.1 % (0-4.0); GRAN # 4.3 K/mm3 (1.4-6.5); GRAN % 65.4 % (42.2-75.2); HEMATOCRIT 49.1 % (42.0-52.0); HEMOGLOBIN 15.9 g/dl (13.5-18.0); LYMPH # 1.5 K/mm3 (1.2-3.4); LYMPH % 23.4 % (20.0-51.0); MEAN CELL VOLUME 91 fl (80.0-100.0); MEAN CORPUSCULAR HEMOGLOBIN 29 pg (27.0-31.0); MEAN CORPUSCULAR HGB CONC 32 g/dl (33.0-37.0); MEAN PLATELET VOLUME 11.2 fl (7.4-10.4); MONO # 0.6 K/mm3 (0.1-0.6); MONO % 8.5 % (1.7-9.3); PLATELET COUNT 207 K/mm3 (130-400); RED BLOOD COUNT 5.42 M/mm3 (4.20-5.60); REDCELL DISTRIBUTION WIDTH-CV 13.6 % (11.5-14.5)
[2021-05-06 10:56] LABS: ALBUMIN 3.7 gm/dL (3.5-5.0); BILIRUBIN,TOTAL 0.6 mg/dL (0.2-1.2); CALCIUM 9.6 mg/dL (8.4-10.2); CREATININE, serum 0.91 mg/dL (0.72-1.25); POTASSIUM 3.9 mmol/L (3.5-4.5); TOTAL PROTEIN 7.5 gm/dL (6.2-8.1)
[2021-05-06 11:03] LABS: TROPONIN-I 0.011 ng/mL (0.00-0.033)
--- NOTE | 2021-05-06 16:00 | NUR ---
Patient to room 358 from the ED by wheelchair. A&Ox4. VSS. IV CDI. Denies chest pain, reports right side lung pain, radiating to left side. Nurse oriented the patient to location, room and call light. No further needs expressed. Call light within reach
[2021-05-06] MEDS ORDERED: ZESTRIL 20MG TA20 MG PO (16:01)
[2021-05-06] MEDS ORDERED: TOPROL XL 25MG25 MG PO (16:03)
[2021-05-06 17:03] VITALS: BP 129/78; PULSE 82
--- NOTE | 2021-05-06 18:02 | NUR ---
Patient in bed eating dinner. A&Ox4. VSS. IV CDI. Denies pain and discomfort. No further needs expressed. Call light within reach
[2021-05-06 19:46] VITALS: BP 117/64; PULSE 77; TEMP 98
--- NOTE | 2021-05-06 23:49 | NUR ---
Patient assessed around 1939. Complained of level 8 pain to left chest. Given scheduled APAP, which did not help. Called ANSHUL Wor[facility]. New order for PRN Morphine received, and given around 2114, which was effective. Patient voices no questions, needs, or concerns at this time. In bed with call light within reach.
[2021-05-07 02:24] VITALS: BP 107/59; PULSE 71; TEMP 98.9
--- NOTE | 2021-05-07 05:57 | NUR ---
Patient received PRN Morphine as requested for pain during the night. Voices no further questions, needs, or concerns at this time. In bed with call light within reach.
[2021-05-07 07:50] LABS: HEMOGLOBIN 15.6 g/dl (13.5-18.0); MEAN CELL VOLUME 90 fl (80.0-100.0); MEAN CORPUSCULAR HEMOGLOBIN 30 pg (27.0-31.0); MEAN CORPUSCULAR HGB CONC 33 g/dl (33.0-37.0); MEAN PLATELET VOLUME 11.2 fl (7.4-10.4); PLATELET COUNT 195 K/mm3 (130-400); RED BLOOD COUNT 5.23 M/mm3 (4.20-5.60); REDCELL DISTRIBUTION WIDTH-CV 13.5 % (11.5-14.5)
[2021-05-07 08:06] LABS: CALCIUM 9.9 mg/dL (8.4-10.2); CREATININE, serum 1.01 mg/dL (0.72-1.25); POTASSIUM 4.2 mmol/L (3.5-4.5)
[2021-05-07 08:19] VITALS: BP 142/95; PULSE 98; TEMP 97.8
--- NOTE | 2021-05-07 10:45 | NUR ---
PT ALERT AND ORIENTED. PT EXPRESSES FRUSTRATION WITH PAIN MANAGEMENT STRATEGIES. PT EDUCATED TO BEST OF ABILITY. PT NOTED DIMINISHED LUNGS IN ALL LBOES. PT HAS TENDER LEFT UPPER QUADRANT, DISTENDED ABDOMEN, FIRM TO TOUCH. PT HAS 1+ PULSES IN DORSALIS PEDIS AND POSTERIOR TIBIAL PULSES, CAP REFILL <3S. PT RADIAL PULSES 2+. PT REDDENED, DUSKY FEET NOTED WHILE SITTING, VARICOSE VEINS BILATERALLY NOTED. PT STATES THIS HAS OCCURRED SINCE LUNG MASS DIAGNOSED. PT HAS MASS ON RIGHT LOWER CALF. PT REPORTS SOME SOA, RECHECKED SPO2 AT 93% ROOM AIR. PT CALL LIGHT WITHIN REACH, INDEPENDENT IN ROOM.
--- NOTE | 2021-05-07 10:46 | NUR ---
parking worker met with patient to discuss discharge plan. Patient lives at home in [place] with his fiance Federica ([phone]). Patient reports that he is fully independent with his activities of daily living and does not utilize any medical assistive devices to assist with mobility. Patient reports that he does not currently use oxygen at home but will probably need it upon dc. Spoke with the patient about the process of getting oxygen set up upon dc. PCP is [facility] in and the patient utilizes [facility] in with no cost difficulties. Patient reports that he does not have a DPOA-HC established at this time but does have an adult daughter livia Herrera ([phone]) that lives in [place]. Spoke at length to the patient about a DPOA-HC and that legally his daughter would be the one we would have to contact and that if he would like to appoint Federica as his agent he would need to fill out a form. Patient verbalized his understanding of this and is accepting of a form being provided to him. Discharge plan: Home-possible O2?
[2021-05-07 11:08] VITALS: BP 101/90; PULSE 95; TEMP 97.7
--- NOTE | 2021-05-07 12:38 | NUR ---
NOTIFIED GLO OF PT REFUSING PAIN MANAGEMENT OPTIONS. ENCOURAGED LIDOCAINE PATCH ONCE AGAIN AND PT STILL REFUSING.
--- NOTE | 2021-05-07 15:34 | NUR ---
Pt discharged, health summary and education given to best of ability. Pt INT discontinued. Pt abmulatory, walked out by this RN. Pt understands appointments are needed to be made and office will call.
== END 2021-05-07 15:35 | disposition home or self-care (01) ==
LOC: COL.ER 09:52 → MEDICAL 13:42
PROVIDERS: Physician Assistant; ADMIT Internal Medicine
DX: R07.89 Other chest pain (principal); I11.0 Hypertensive heart disease with heart failure; I50.20 Unspecified systolic (congestive) heart failure; I25.10 Atherosclerotic heart disease of native coronary artery without angina pectoris; I25.2 Old myocardial infarction; E78.5 Hyperlipidemia, unspecified; E66.9 Obesity, unspecified; R91.1 Solitary pulmonary nodule; R91.8 Other nonspecific abnormal finding of lung field; M48.061 Spinal stenosis, lumbar region without neurogenic claudication; F41.9 Anxiety disorder, unspecified; F17.210 Nicotine dependence, cigarettes, uncomplicated; Z79.899 Other long term (current) drug therapy; Z79.82 Long term (current) use of aspirin; Z79.02 Long term (current) use of antithrombotics/antiplatelets; Z80.1 Family history of malignant neoplasm of trachea, bronchus and lung
CPT/HCPCS: G0378; J1650; J1940; J2270; J2405; Q9967

== ENCOUNTER 2021-05-09 14:33 | Emergency (ER) | payer MEDICAID ==
[~2021-05-09] VITALS: Ht 180.3 cm; Wt 118.2 kg
[~2021-05-09 14:33] MED LIST changes: +TOPROL XL 25MG25 MG PO
[2021-05-09 15:13] VITALS: BP 110/80; PULSE 100; TEMP 99
== END 2021-05-09 15:52 | disposition home or self-care (01) ==
LOC: COL.ER 14:33
DX: S30.1XXA Contusion of abdominal wall, initial encounter (principal); I25.10 Atherosclerotic heart disease of native coronary artery without angina pectoris; I50.9 Heart failure, unspecified; I11.0 Hypertensive heart disease with heart failure; E78.5 Hyperlipidemia, unspecified; F17.210 Nicotine dependence, cigarettes, uncomplicated; Z79.82 Long term (current) use of aspirin; Z79.899 Other long term (current) drug therapy; X58.XXXA Exposure to other specified factors, initial encounter

== ENCOUNTER 2021-07-22 14:36 | Emergency (ER) | payer MEDICAID ==
[~2021-07-22] VITALS: Ht 180.3 cm; Wt 122.7 kg
[2021-07-22 14:44] VITALS: BP 162/101; TEMP 98.4
[2021-07-22] MEDS ORDERED: NORCO 325 MG-51 TAB PO (15:10)
[2021-07-22] MEDS ORDERED: PREDNISONE10 MG PO (15:10)
[2021-07-22 15:27] VITALS: PULSE 78
== END 2021-07-22 15:27 | disposition home or self-care (01) ==
LOC: COL.ER 14:36
DX: M10.042 Idiopathic gout, left hand (principal); M10.072 Idiopathic gout, left ankle and foot; M10.071 Idiopathic gout, right ankle and foot; I10 Essential (primary) hypertension; I25.10 Atherosclerotic heart disease of native coronary artery without angina pectoris; I25.2 Old myocardial infarction; Z86.74 Personal history of sudden cardiac arrest; Z72.0 Tobacco use; Z79.82 Long term (current) use of aspirin; Z79.02 Long term (current) use of antithrombotics/antiplatelets; Z79.899 Other long term (current) drug therapy
CPT/HCPCS: J7512

== ENCOUNTER 2021-07-26 12:02 | Emergency (ER) | payer MEDICAID ==
[~2021-07-26] VITALS: Ht 180.3 cm; Wt 125.0 kg
[~2021-07-26 12:02] MED LIST changes: +PREDNISONE10 MG PO
[2021-07-26 14:32] LABS: BASO % 0.1 % (0.0-2.0); GRAN # 8.1 K/mm3 (1.4-6.5); GRAN % 84.5 % (42.2-75.2); HEMATOCRIT 45.5 % (42.0-52.0); HEMOGLOBIN 14.8 g/dl (13.5-18.0); LYMPH % 9.9 % (20.0-51.0); MEAN CELL VOLUME 88 fl (80.0-100.0); MEAN CORPUSCULAR HEMOGLOBIN 29 pg (27-31); MEAN CORPUSCULAR HGB CONC 33 g/dl (33.0-37.0); MEAN PLATELET VOLUME 11.9 fl (7.4-10.4); MONO # 0.4 K/mm3 (0.1-0.6); MONO % 4.6 % (1.7-9.3); PLATELET COUNT 281 K/mm3 (130-400); RED BLOOD COUNT 5.16 M/mm3 (4.20-5.60); REDCELL DISTRIBUTION WIDTH-CV 13.6 % (11.5-14.5)
[2021-07-26 14:44] LABS: ALBUMIN 3.5 gm/dL (3.5-5.0); BILIRUBIN,TOTAL 0.2 mg/dL (0.2-1.2); C-REACTIVE PROTEIN 0.4 mg/dL (0.00-0.50); CALCIUM 9.2 mg/dL (8.4-10.2); CREATININE, serum 1.05 mg/dL (0.72-1.25); POTASSIUM 4.6 mmol/L (3.5-4.5); TOTAL PROTEIN 6.9 gm/dL (6.2-8.1)
[2021-07-26 14:55] LABS: ERYTHROCYTE SEDIMENTATION RATE 22 mm/hr (0-15)
[2021-07-26] MEDS ORDERED: PERCOCET 325 MG1 TA2 PO (15:30)
[2021-07-26] MEDS ORDERED: PREDNISONE20 MG PO (15:30)
[2021-07-26] MEDS ORDERED: GLUCOPHAGE500 MG/TAB PO (15:30)
[2021-07-26 15:55] VITALS: BP 167/107; PULSE 86; TEMP 99.7
== END 2021-07-26 15:52 | disposition home or self-care (01) ==
LOC: COL.ER 12:02
PROVIDERS: Personal Emergency Response Attendant
DX: M10.9 Gout, unspecified (principal); I11.0 Hypertensive heart disease with heart failure; I50.9 Heart failure, unspecified; I25.2 Old myocardial infarction; Z88.6 Allergy status to analgesic agent; Z79.899 Other long term (current) drug therapy; Z79.82 Long term (current) use of aspirin; Z79.02 Long term (current) use of antithrombotics/antiplatelets
CPT/HCPCS: J1100; J1815; J2060; J3010; J7040

== ENCOUNTER 2021-08-13 13:33 | Emergency (ER) | payer MEDICAID ==
[~2021-08-13] VITALS: Ht 180.3 cm; Wt 122.7 kg
[~2021-08-13 13:33] MED LIST changes: +GLUCOPHAGE500 MG/TAB PO; +PERCOCET 325 MG1 TA2 PO
[2021-08-13 14:18] VITALS: TEMP 99
[2021-08-13 16:40] LABS: HEMATOCRIT 43.6 % (42.0-52.0); HEMOGLOBIN 14.5 g/dl (13.5-18.0); MEAN CELL VOLUME 89 fl (80.0-100.0); MEAN CORPUSCULAR HEMOGLOBIN 30 pg (27-31); MEAN CORPUSCULAR HGB CONC 33 g/dl (33.0-37.0); MEAN PLATELET VOLUME 11.6 fl (7.4-10.4); PLATELET COUNT 152 K/mm3 (130-400); RED BLOOD COUNT 4.92 M/mm3 (4.20-5.60); REDCELL DISTRIBUTION WIDTH-CV 14.4 % (11.5-14.5)
[2021-08-13 16:56] LABS: ALBUMIN 3.4 gm/dL (3.5-5.0); BILIRUBIN,TOTAL 0.5 mg/dL (0.2-1.2); CREATININE, serum 1.27 mg/dL (0.72-1.25); POTASSIUM 4.7 mmol/L (3.5-4.5); TOTAL PROTEIN 7.4 gm/dL (6.2-8.1)
[2021-08-13 17:29] LABS: BAND 3 % (0-10); EOSINOPHIL 2 % (0-4); LYMPHOCYTE 9 % (20.0-51.0); NEUTROPHILS 85 % (42.0-75.2)
[2021-08-13 17:30] LABS: PLATELET ESTIMATE NORMAL (NORMAL)
[2021-08-13] MEDS ORDERED: PERCOCET 325 MG1 TA2 PO (17:31)
[2021-08-13 17:45] VITALS: BP 119/79; PULSE 66
== END 2021-08-13 17:45 | disposition home or self-care (01) ==
LOC: COL.ER 13:33
PROVIDERS: Physician Assistant
DX: G89.29 Other chronic pain (principal); E11.65 Type 2 diabetes mellitus with hyperglycemia
CPT/HCPCS: J3010

== ENCOUNTER 2021-09-02 04:31 | Emergency (ER) | payer MEDICAID ==
[~2021-09-02] VITALS: Ht 180.3 cm; Wt 118.2 kg
[2021-09-02 04:38] VITALS: BP 114/70; TEMP 98.9
[2021-09-02 05:09] LABS: BASO % 0.2 % (0.0-2.0); EOS # 0.1 K/mm3 (0.0-0.7); EOS % 0.6 % (0.0-4.0); GRAN # 8.8 K/mm3 (1.4-6.5); GRAN % 75.9 % (42.2-75.2); HEMATOCRIT 40.2 % (42.0-52.0); LYMPH # 1.7 K/mm3 (1.2-3.4); LYMPH % 14.5 % (20.0-51.0); MEAN CELL VOLUME 90 fl (80.0-100.0); MEAN CORPUSCULAR HEMOGLOBIN 29 pg (27-31); MEAN CORPUSCULAR HGB CONC 32 g/dl (33.0-37.0); MEAN PLATELET VOLUME 11.1 fl (7.4-10.4); MONO % 8.4 % (1.7-9.3); PLATELET COUNT 232 K/mm3 (130-400); RED BLOOD COUNT 4.46 M/mm3 (4.20-5.60); REDCELL DISTRIBUTION WIDTH-CV 14.8 % (11.5-14.5)
[2021-09-02 05:32] LABS: ALBUMIN 3.7 gm/dL (3.5-5.0); BILIRUBIN,TOTAL 0.3 mg/dL (0.2-1.2); CALCIUM 9.1 mg/dL (8.4-10.2); CREATININE, serum 1.14 mg/dL (0.72-1.25); POTASSIUM 3.9 mmol/L (3.5-4.5); TOTAL PROTEIN 7.3 gm/dL (6.2-8.1)
[2021-09-02 05:44] LABS: ERYTHROCYTE SEDIMENTATION RATE 24 mm/hr (0-15)
[2021-09-02 06:22] VITALS: PULSE 78
== END 2021-09-02 06:22 | disposition home or self-care (01) ==
LOC: COL.ER 04:31
PROVIDERS: Personal Emergency Response Attendant
DX: M25.531 Pain in right wrist (principal); F17.210 Nicotine dependence, cigarettes, uncomplicated; Z79.891 Long term (current) use of opiate analgesic
CPT/HCPCS: J2060; J2405; J3010

== ENCOUNTER 2021-10-05 10:33 | Day surgery (SDC) | payer MEDICAID ==
[~2021-10-05] VITALS: Ht 180.3 cm; Wt 117.0 kg
[2021-10-05] VITALS (11 sets, daily range): BP systolic 103–147; BP diastolic 7–96; PULSE 78–93; TEMP 98.7
[2021-10-05 11:27] LABS: HEMATOCRIT 42.2 % (42.0-52.0); HEMOGLOBIN 13.8 g/dl (13.5-18.0); MEAN CELL VOLUME 88 fl (80.0-100.0); MEAN CORPUSCULAR HEMOGLOBIN 29 pg (27-31); MEAN CORPUSCULAR HGB CONC 33 g/dl (33.0-37.0); MEAN PLATELET VOLUME 11.9 fl (7.4-10.4); PLATELET COUNT 188 K/mm3 (130-400); RED BLOOD COUNT 4.79 M/mm3 (4.20-5.60); REDCELL DISTRIBUTION WIDTH-CV 14.2 % (11.5-14.5)
[2021-10-05 11:35] LABS: PROTHROMBIN TIME 11.3 SECONDS (9.7-12.8)
[2021-10-05 11:37] LABS: PARTIAL THROMBOPLASTIN TIME 31.9 SECONDS (26.0-37.0)
[2021-10-05 11:40] LABS: CALCIUM 9.2 mg/dL (8.4-10.2); CREATININE, serum 0.81 mg/dL (0.72-1.25); POTASSIUM 4.5 mmol/L (3.5-4.5)
[2021-10-05] MEDS ORDERED: GLUCOPHAGE500 MG/TAB PO (11:44)
[2021-10-05] MEDS ORDERED: DIFLUCAN200 MG PO (12:17)
[2021-10-05] MEDS ORDERED: LIPITOR 40MG TA40 MG PO (12:17)
[2021-10-05] MEDS ORDERED: PROAIR HFA0.09 MG/AC IH (12:18)
[2021-10-05] MEDS ORDERED: ZEBETA 5MG5 MG PO (12:18)
[2021-10-05] MEDS ORDERED: ASPIRIN 81M81 MG/TA2 PO (12:19)
[2021-10-05] MEDS ORDERED: PLAVIX 75MG TAB75 MG PO (12:19)
[2021-10-05] MEDS ORDERED: RANEXA 500MG T500 MG PO (12:20)
[2021-10-05] MEDS ORDERED: LASIX 40MG TABL40 MG PO (12:20)
[2021-10-05] MEDS ORDERED: PERCOCET 325 MG1 TA2 PO (12:22)
--- NOTE | 2021-10-05 12:41 | NUR ---
PATIENT ALERT AND ORIENTED, NO REPORTS OF CHEST PAIN BUT PATIENT DOES REPORT CHRONIC BACK PAIN. PATIENT REPORTS CHRONIC COUGH. CONSENT VERIFIED. NO FAMILY HERE AT THIS TIME BUT PATIENT REPORTS HE WILL HAVE RIDE IF NEEDED. SEE MERGE FOR HEART CATH PROCEDURE DETAILS WELL ALL MONITORING AND MEDICATION ADMINISTRATION
--- NOTE | 2021-10-05 13:24 | NUR ---
Report received pt transferred to an inpatient room.
--- NOTE | 2021-10-05 18:13 | NUR ---
PRESSURE BAND REMOVED, NO HEMATOMA, NO BLEEDING, NO C/O PAIN. VITAL SIGNS STABLE. PATIENT COMPLAING OF ANXIETY AND NEEDING TO HAVE SOMETHING TO SLEEP OR HE IS READY TO LEAVE HOSPITAL. WILL CALL PROVIDER.
--- NOTE | 2021-10-05 19:13 | NUR ---
Pt requested nicotene patch and melatonin for sleep this evening. Notified Dr. May and was given a verbal phone order for melatonin and a nicotene patch.
--- NOTE | 2021-10-05 19:47 | NUR ---
Entered pt's room and he persisted that he wanted to leave AMA. I educated the pt on the risks/benefits of leaving/staying. The pt persisted on leaving. Notified Dr. May, who stated to remind the pt of the risks/benefits and that if he wanted to leave then he could go. Pt filled out AMA form. Educated PT again of the risks/benefits. Pt awknowledged and signed form. Removed pt's IV. Removed tele. Pt independently dressed. Assisted pt out of the building and to his car.
== END 2021-10-05 19:40 | disposition home or self-care (01) ==
LOC: COL.CAR 10:33 → MEDICAL 13:50 → COL.CAR 19:40
PROVIDERS: Internal Medicine Cardiovascular Disease
DX: I25.119 Atherosclerotic heart disease of native coronary artery with unspecified angina pectoris (principal); E78.5 Hyperlipidemia, unspecified; I11.9 Hypertensive heart disease without heart failure; F17.200 Nicotine dependence, unspecified, uncomplicated; Z95.5 Presence of coronary angioplasty implant and graft
CPT/HCPCS: OP; C1725; C1769; C1874; C1887; C9600; J1644; J2250; J3010; J7030; Q9967